=== PATIENT | female | born 1985 | race Caucasian/White ===

== ENCOUNTER 2024-01-25 06:50 | Inpatient (IN) | payer MEDICAID ==
[~2024-01-25] VITALS: Ht 172.7 cm; Wt 74.0 kg
[~2024-01-25 06:50] MED LIST: MIRT-89 PO; RISP3TAB77 PO
[2024-01-25] MEDS: DiphenhydrAMINE HCL 25 MG CAPSULE PO ONE (07:17)
[2024-01-25] MEDS: LORazepam 1 MG TABLET PO ONE (07:17)
[2024-01-25] MEDS: HALOPERIDOL 5 MG TABLET PO ONE (07:17)
[2024-01-25 07:46] LABS: BASOPHILS % (AUTO) 0.6 % (0.0-2.0); HEMATOCRIT 42.4 % (36-46); HEMOGLOBIN 14.1 g/dL (12.0-16.0); LYMPHOCYTES # (AUTO) 2.1 K/uL (1.0-4.8); LYMPHOCYTES % (AUTO) 25.6 % (22.0-44.0); MEAN CORPUSCULAR HEMOGLOBIN 31.1 pg (26.0-34.0); MEAN CORPUSCULAR HGB CONC 33.2 G/dL (31.0-37.0); MEAN CORPUSCULAR VOLUME 94 fL (80-100); MONOCYTES # (AUTO) 0.8 K/uL (0.1-1.0); MONOCYTES % (AUTO) 9.3 % (2.0-9.0); NEUTROPHILS # (AUTO) 5.1 K/uL (1.8-7.7); NEUTROPHILS % (AUTO) 62.5 % (40.0-70.0); PLATELET COUNT (AUTO) 270 K/uL (150-450); RED BLOOD CELL COUNT(AUTO) 4.53 MIL/uL (4.00-5.20); WHITE BLOOD COUNT (AUTO) 8.1 K/uL (4.5-11.0)
[2024-01-25 07:54] LABS: ANION GAP 6 mmol/L (8-16); CALCIUM, TOTAL 9.6 mg/dL (8.8-10.5); CARBON DIOXIDE 32 mmol/L (22-29); CHLORIDE 103 mmol/L (98-107); CREATININE 0.91 mg/dL (0.60-1.30); GLOMERULAR FILTR. RATE CALC > 60 mL/min (>60); GLUCOSE,RANDOM 91 mg/dL (70-110); POTASSIUM 4.8 mmol/L (3.5-5.1); SODIUM SERUM 141 mmol/L (136-145); UREA NITROGEN, BLOOD 22 mg/dL (7-18)
[2024-01-25 08:11] LABS: ALCOHOL, BLOOD (SERUM) < 3 mg/dL (0-10); LITHIUM < 0.20 mmol/L (0.60-1.20)
[2024-01-25 12:25] LABS: COVID AG,FIA SOURCE NASAL SWAB
[2024-01-25 12:48] LABS: SARS-COV2 (COVID) ANTIGEN,FIA Negative (Negative)
[2024-01-25 17:00] VITALS: O2SAT 100
[2024-01-25] MEDS ORDERED: BENZOCAINE/MENTHOL LOZENGE PO PRN (21:00)
[2024-01-25] MEDS ORDERED: BACITRACIN 28 GM OINTMENT TP PRN (21:00)
[2024-01-25] MEDS ORDERED: CloNIDine HCL 0.1 MG TABLET PO PRN (21:00)
[2024-01-25] MEDS ORDERED: DOCUSATE SODIUM 100 MG CAPSULE PO PRN (21:00)
[2024-01-25] MEDS ORDERED: ONDANSETRON 4 MG TABLET PO PRN (21:00)
[2024-01-25] MEDS ORDERED: ALBUTEROL SULFATE HFA 90 MCG/PUFF 8 GM INHALER IH PRN (21:00)
[2024-01-25] MEDS ORDERED: MAGNESIUM HYDROXIDE SUSPENSION 30 ML UDCUP PO PRN (21:00)
[2024-01-25] MEDS ORDERED: LOPERAMIDE HCL 2 MG CAPSULE PO PRN (21:00)
[2024-01-25 22:26] VITALS: BP 92/64; PULSE 84; RESP 18; TEMP 97.9; O2SAT 96
[2024-01-26] MEDS: HALOPERIDOL 5 MG TABLET PO PRN (08:35)
[2024-01-26] MEDS: LORazepam 2 MG TABLET PO PRN (08:35)
[2024-01-26 12:56] VITALS: RESP 16
[2024-01-26] MEDS: LITHIUM CARBONATE 300 MG CAPSULE PO SCH (17:00)
[2024-01-26] MEDS: DIVALPROEX SODIUM 500 MG DR TABLET PO SCH (17:00)
[2024-01-26] MEDS: NICOTINE POLACRILEX 4 MG LOZENGE PO PRN (17:06)
[2024-01-26 20:00] VITALS: BP 140/65; PULSE 76; RESP 18; TEMP 98.6; O2SAT 98
[2024-01-27 08:44] VITALS: BP 100/60; PULSE 77; RESP 19; TEMP 97.6; O2SAT 99
[2024-01-28 03:37] VITALS: RESP 16
[2024-01-28 08:21] VITALS: BP 128/76; PULSE 86; RESP 18; TEMP 97.6; O2SAT 98
[2024-01-28] MEDS: QUEtiapine FUMARATE 300 MG TABLET PO SCH (20:12)
[2024-01-28 20:29] VITALS: BP 111/73; PULSE 78; RESP 19; TEMP 97.6; O2SAT 98
[2024-01-29] MEDS: NICOTINE POLACRILEX 2 MG LOZENGE PO PRN (18:59)
[2024-01-29 22:09] VITALS: BP 120/72; PULSE 91; RESP 18; TEMP 96.9; O2SAT 98
[2024-01-30] MEDS: ZOLPIDEM TARTRATE 10 MG TABLET PO PRN (00:57)
[2024-01-30 08:23] VITALS: BP_SYST 100; PULSE 81; RESP 16; TEMP 97.6; O2SAT 97
[2024-01-30 20:47] VITALS: BP 98/59; PULSE 87; RESP 16; TEMP 97.7; O2SAT 98
[2024-01-31] MEDS: CloZAPine 25 MG TABLET PO SCH (08:16)
[2024-01-31 09:03] VITALS: BP 102/76; PULSE 91; RESP 18; TEMP 97.8; O2SAT 100
[2024-01-31 20:13] VITALS: BP 100/59; PULSE 70; RESP 18; TEMP 97.5; O2SAT 99
[2024-01-31] MEDS: IBUPROFEN 600 MG TABLET PO PRN (21:47)
[2024-02-01] MEDS: CloZAPine 25 MG TABLET PO SCH ×2 (08:11→21:16)
[2024-02-01 09:19] VITALS: RESP 18
[2024-02-02] VITALS: BP 126/82; PULSE 80; RESP 17; TEMP 97.8
[2024-02-02] MEDS: CloZAPine 25 MG TABLET PO SCH ×2 (08:36→20:33)
[2024-02-02 09:05] VITALS: BP 129/67; PULSE 66; RESP 17; TEMP 98.8; O2SAT 97
[2024-02-03 08:02] LABS: BASOPHILS % (AUTO) 0.5 % (0.0-2.0); EOSINOPHILS % (AUTO) 2.9 % (1.0-6.0); HEMATOCRIT 38.6 % (36-46); HEMOGLOBIN 12.9 g/dL (12.0-16.0); LYMPHOCYTES # (AUTO) 2.1 K/uL (1.0-4.8); LYMPHOCYTES % (AUTO) 24.1 % (22.0-44.0); MEAN CORPUSCULAR HEMOGLOBIN 31.4 pg (26.0-34.0); MEAN CORPUSCULAR HGB CONC 33.4 G/dL (31.0-37.0); MEAN CORPUSCULAR VOLUME 94 fL (80-100); MONOCYTES # (AUTO) 0.8 K/uL (0.1-1.0); MONOCYTES % (AUTO) 9.2 % (2.0-9.0); NEUTROPHILS # (AUTO) 5.5 K/uL (1.8-7.7); NEUTROPHILS % (AUTO) 63.3 % (40.0-70.0); PLATELET COUNT (AUTO) 228 K/uL (150-450); RED BLOOD CELL COUNT(AUTO) 4.11 MIL/uL (4.00-5.20); RED CELL DISTRIBUTION WIDTH 13.3 % (11.5-14.5); WHITE BLOOD COUNT (AUTO) 8.7 K/uL (4.5-11.0)
[2024-02-03 08:10] LABS: LITHIUM 0.29 mmol/L (0.60-1.20)
[2024-02-03 08:23] VITALS: BP 112/69; PULSE 74; RESP 16; TEMP 97.6; O2SAT 96
[2024-02-03] MEDS: CloZAPine 25 MG TABLET PO SCH (08:47)
[2024-02-03] MEDS: GABAPENTIN 300 MG CAPSULE PO PRN (16:39)
[2024-02-03 21:26] VITALS: BP 103/70; PULSE 98; RESP 18; TEMP 97.5; O2SAT 98
[2024-02-04 08:20] VITALS: PULSE 100; RESP 18; TEMP 97.9; O2SAT 99
[2024-02-04 20:00] VITALS: BP 107/69; PULSE 103; RESP 17; TEMP 96.5; O2SAT 99
[2024-02-05] MEDS: CloZAPine 25 MG TABLET PO SCH (08:07)
[2024-02-05 08:22] VITALS: RESP 16
[2024-02-05] MEDS: CloZAPine 100 MG TABLET PO SCH (20:22)
[2024-02-05 21:09] VITALS: BP 111/60; PULSE 63; RESP 18; TEMP 97.5; O2SAT 99
[2024-02-05 22:44] VITALS: RESP 18
[2024-02-06] MEDS: CloZAPine 25 MG TABLET PO SCH (08:18)
[2024-02-06 08:33] VITALS: RESP 17
[2024-02-06] MEDS: CloZAPine 100 MG TABLET PO SCH (20:04)
[2024-02-06 20:18] VITALS: BP 107/72; PULSE 102; RESP 17; TEMP 98.7; O2SAT 98
[2024-02-07] MEDS: CloZAPine 25 MG TABLET PO SCH (07:45)
[2024-02-07 08:29] VITALS: RESP 16
[2024-02-07 20:16] VITALS: BP 112/72; PULSE 78; RESP 18; TEMP 97.7; O2SAT 98
[2024-02-07] MEDS: CloZAPine 100 MG TABLET PO SCH (20:19)
[2024-02-07 22:09] VITALS: RESP 18
[2024-02-07 23:06] VITALS: RESP 16
[2024-02-08] MEDS: CloZAPine 100 MG TABLET PO SCH (08:24)
[2024-02-08 08:31] LABS: BASOPHILS % (AUTO) 0.2 % (0.0-2.0); HEMATOCRIT 38.4 % (36-46); HEMOGLOBIN 12.9 g/dL (12.0-16.0); LYMPHOCYTES # (AUTO) 1.7 K/uL (1.0-4.8); LYMPHOCYTES % (AUTO) 16.6 % (22.0-44.0); MEAN CORPUSCULAR HEMOGLOBIN 31.5 pg (26.0-34.0); MEAN CORPUSCULAR HGB CONC 33.5 G/dL (31.0-37.0); MEAN CORPUSCULAR VOLUME 94 fL (80-100); MONOCYTES # (AUTO) 1.1 K/uL (0.1-1.0); MONOCYTES % (AUTO) 10.9 % (2.0-9.0); NEUTROPHILS # (AUTO) 7.3 K/uL (1.8-7.7); NEUTROPHILS % (AUTO) 69.3 % (40.0-70.0); PLATELET COUNT (AUTO) 193 K/uL (150-450); RED BLOOD CELL COUNT(AUTO) 4.09 MIL/uL (4.00-5.20); RED CELL DISTRIBUTION WIDTH 13.8 % (11.5-14.5); WHITE BLOOD COUNT (AUTO) 10.5 K/uL (4.5-11.0)
[2024-02-08 08:38] VITALS: RESP 17
[2024-02-08] MEDS: LITHIUM CARBONATE 300 MG CAPSULE PO SCH (14:06)
[2024-02-08 20:00] VITALS: BP 100/69; PULSE 95; RESP 16; TEMP 97.5; O2SAT 100
[2024-02-08] MEDS: QUEtiapine FUMARATE 100 MG TABLET PO SCH (20:43)
[2024-02-08] MEDS: ESZOPICLONE 3 MG TABLET PO SCH (20:44)
[2024-02-08] MEDS: DIVALPROEX SODIUM 500 MG DR TABLET PO SCH (20:44)
[2024-02-09 08:24] VITALS: RESP 16
[2024-02-09 23:49] VITALS: BP 122/71; PULSE 88; RESP 16; TEMP 97.1; O2SAT 100
[2024-02-10] MEDS: CloZAPine 25 MG TABLET PO SCH (08:51)
[2024-02-10 09:49] VITALS: BP 101/64; PULSE 102; RESP 16; TEMP 98.2; O2SAT 98
[2024-02-10 11:42] VITALS: RESP 18
[2024-02-10] MEDS: CloZAPine 100 MG TABLET PO SCH (20:17)
[2024-02-11] MEDS: CloZAPine 25 MG TABLET PO SCH (08:41)
[2024-02-11] MEDS: CloZAPine 100 MG TABLET PO SCH (20:27)
[2024-02-11 21:36] VITALS: RESP 19
[2024-02-11 22:36] VITALS: RESP 17
[2024-02-12] MEDS: CloZAPine 100 MG TABLET PO SCH ×2 (08:41→20:09)
[2024-02-12 08:51] VITALS: BP 101/63; PULSE 98; RESP 17; TEMP 97.5; O2SAT 98
[2024-02-12 17:07] VITALS: RESP 18
[2024-02-12 18:07] VITALS: RESP 17
[2024-02-12 20:21] VITALS: BP 103/63; PULSE 95; RESP 18; TEMP 97; O2SAT 98
[2024-02-12 23:30] VITALS: RESP 18
[2024-02-13 09:12] VITALS: BP 107/74; PULSE 109; RESP 16; TEMP 97.6; O2SAT 99
[2024-02-14 00:11] VITALS: BP 131/80; PULSE 111; RESP 20; TEMP 98; O2SAT 100
[2024-02-14 09:43] VITALS: RESP 17
[2024-02-14 23:27] VITALS: BP 129/81; PULSE 118; RESP 18; TEMP 97.5; O2SAT 100
[2024-02-14 23:40] VITALS: RESP 18
[2024-02-15 08:35] VITALS: RESP 17
[2024-02-15 20:00] VITALS: RESP 16
[2024-02-16 16:01] VITALS: BP 126/77; PULSE 97; RESP 16; TEMP 97.6
[2024-02-16 16:41] VITALS: BP 118/72; PULSE 89; RESP 17; TEMP 98; O2SAT 98
[2024-02-16 20:43] VITALS: BP 121/88; PULSE 102; RESP 18; TEMP 97; O2SAT 97
[2024-02-17 08:10] LABS: BASOPHILS % (AUTO) 0.3 % (0.0-2.0); EOSINOPHILS % (AUTO) 3.1 % (1.0-6.0); HEMOGLOBIN 10.9 g/dL (12.0-16.0); LYMPHOCYTES # (AUTO) 1.1 K/uL (1.0-4.8); LYMPHOCYTES % (AUTO) 9.7 % (22.0-44.0); MEAN CORPUSCULAR HEMOGLOBIN 30.7 pg (26.0-34.0); MEAN CORPUSCULAR HGB CONC 32.9 G/dL (31.0-37.0); MEAN CORPUSCULAR VOLUME 93 fL (80-100); MONOCYTES # (AUTO) 1.8 K/uL (0.1-1.0); MONOCYTES % (AUTO) 16.4 % (2.0-9.0); NEUTROPHILS # (AUTO) 7.8 K/uL (1.8-7.7); NEUTROPHILS % (AUTO) 70.5 % (40.0-70.0); PLATELET COUNT (AUTO) 264 K/uL (150-450); RED BLOOD CELL COUNT(AUTO) 3.54 MIL/uL (4.00-5.20); RED CELL DISTRIBUTION WIDTH 13.5 % (11.5-14.5); WHITE BLOOD COUNT (AUTO) 11.1 K/uL (4.5-11.0)
[2024-02-17 08:27] VITALS: RESP 16
[2024-02-17] MEDS: CloZAPine 100 MG TABLET PO SCH (08:36)
[2024-02-17 12:24] VITALS: BP 107/72; PULSE 127; RESP 18; TEMP 100.4; O2SAT 97
[2024-02-17 12:28] VITALS: RESP 17
[2024-02-17 13:28] VITALS: RESP 17
[2024-02-17 15:26] LABS: GLUCOMETER DEV NAME(LOC) POC.BV; POC SARS-COV2 AG, FIA NEGATIVE (NEGATIVE)
[2024-02-17 16:30] VITALS: BP 101/69; PULSE 115; RESP 16; TEMP 98.2; O2SAT 97
[2024-02-17 20:00] VITALS: BP 101/69; PULSE 115; RESP 17; TEMP 98.2; O2SAT 97
[2024-02-18 02:26] VITALS: BP 112/74; PULSE 117; RESP 18; TEMP 98.2; O2SAT 98
[2024-02-18 08:00] VITALS: BP 111/66; PULSE 100; RESP 16; TEMP 98.2; O2SAT 100
[2024-02-18 08:24] LABS: APPEARANCE,URINE CLEAR (CLEAR); BILIRUBIN,URINE NEGATIVE (NEGATIVE); COLOR,URINE LIGHT YELLOW (YELLOW); GLUCOSE, URINE (UA) NEGATIVE (NEGATIVE); KETONES,URINE NEGATIVE (NEGATIVE); LEUKOCYTE ESTERASE ,URINE NEGATIVE (NEGATIVE); NITRATE,URINE NEGATIVE (NEGATIVE); OCCULT BLOOD,URINE NEGATIVE (NEGATIVE); PH,URINE 6.5 (5.0-8.0); PROTEIN,URINE NEGATIVE (NEGATIVE); SPECIFIC GRAVITIY, URINE 1.016 (1.003-1.030); UROBILINOGEN,URINE <=1.0 mg/dL (<=1.0)
[2024-02-18 08:40] LABS: BACTERIA,URINE None Seen /HPF (None Seen); RBC,URINE None Seen /HPF (0-2); SQUAMOUS EPITHELIAL CELL,UR Few /LPF (None Seen); WBC,URINE None Seen /HPF (0-5)
[2024-02-18] MEDS: RisperiDONE MICROSPHERES 50 MG/2 ML SYRINGE IM SCH (09:03)
[2024-02-18 21:14] VITALS: BP 114/76; PULSE 100; RESP 18; TEMP 98; O2SAT 97
[2024-02-19 10:23] VITALS: RESP 18
[2024-02-19] MEDS: PETROLATUM,WHITE 28 GM JELLY TP PRN (16:31)
[2024-02-19 21:59] VITALS: BP 101/63; PULSE 79; RESP 20; TEMP 97.3; O2SAT 96
[2024-02-20 09:40] VITALS: BP 103/59; PULSE 82; RESP 18; TEMP 98; O2SAT 97
[2024-02-20 09:50] VITALS: BP 106/63; PULSE 76
[2024-02-20 20:42] VITALS: BP 106/68; PULSE 76; RESP 18; TEMP 98; O2SAT 96
[2024-02-21 19:15] VITALS: BP 110/68; PULSE 72; RESP 17; TEMP 98; O2SAT 96
[2024-02-21 20:34] VITALS: BP 102/65; PULSE 18; RESP 18; TEMP 97.2; O2SAT 98
[2024-02-22 16:41] VITALS: BP 111/72; PULSE 77; RESP 18; TEMP 97.7
[2024-02-23] VITALS (7 sets, daily range): BP systolic 101–115; BP diastolic 60–82; PULSE 65–86; RESP 16–18; TEMP 97.1–97.9; O2SAT 98
[2024-02-23] MEDS: ACETAMINOPHEN 325 MG TABLET PO PRN (15:35)
[2024-02-24] VITALS (9 sets, daily range): BP systolic 98–112; BP diastolic 61–69; PULSE 74–85; RESP 16–18; TEMP 97.7–98; O2SAT 96–97
[2024-02-24 08:50] LABS: BASOPHILS % (AUTO) 1.2 % (0.0-2.0); EOSINOPHILS % (AUTO) 3.1 % (1.0-6.0); HEMATOCRIT 35.1 % (36-46); HEMOGLOBIN 11.7 g/dL (12.0-16.0); LYMPHOCYTES # (AUTO) 2.2 K/uL (1.0-4.8); LYMPHOCYTES % (AUTO) 19.8 % (22.0-44.0); MEAN CORPUSCULAR HGB CONC 33.3 G/dL (31.0-37.0); MEAN CORPUSCULAR VOLUME 93 fL (80-100); MONOCYTES % (AUTO) 9.2 % (2.0-9.0); NEUTROPHILS # (AUTO) 7.3 K/uL (1.8-7.7); NEUTROPHILS % (AUTO) 66.7 % (40.0-70.0); PLATELET COUNT (AUTO) 406 K/uL (150-450); RED BLOOD CELL COUNT(AUTO) 3.77 MIL/uL (4.00-5.20); RED CELL DISTRIBUTION WIDTH 13.4 % (11.5-14.5)
[2024-02-25] VITALS (9 sets, daily range): RESP 16–18; TEMP 97.3
[2024-02-26] VITALS (9 sets, daily range): BP systolic 92–111; BP diastolic 58–74; PULSE 74–96; RESP 16–18; TEMP 97.5–97.8; O2SAT 96–97
[2024-02-26] MEDS: NICOTINE 14 MG/24 HOUR PATCH TD PRN (12:49)
[2024-02-26] MEDS: LORazepam 1 MG TABLET PO PRN (13:28)
[2024-02-27 08:28] VITALS: RESP 16
[2024-02-27] MEDS: TUBERCULIN, PURIFIED PROTEIN DERIVATIVE 5 TU/0.1 ML SYRINGE ID ONE (09:20)
[2024-02-27] MEDS: MAG HYDROX/ALUMINUM HYD/SIMETH ES 30 ML SUSPENSION UDCUP PO PRN (13:48)
[2024-02-27 16:40] VITALS: BP 111/78; PULSE 89; RESP 17; TEMP 97.6
[2024-02-27 19:59] VITALS: RESP 18
[2024-02-27 21:18] VITALS: BP 110/76; PULSE 90; RESP 17; TEMP 97.5; O2SAT 97
[2024-02-28 09:26] VITALS: BP 101/60; PULSE 69; RESP 18; TEMP 97.8; O2SAT 96
[2024-02-28 19:56] VITALS: RESP 19
[2024-02-28 20:00] VITALS: BP 116/70; PULSE 100; RESP 16; TEMP 98.2; O2SAT 97
[2024-02-28 20:56] VITALS: RESP 16
[2024-02-29 08:57] VITALS: RESP 17
[2024-02-29 13:20] VITALS: BP 100/63; RESP 17; O2SAT 97
[2024-02-29 14:22] VITALS: RESP 18
[2024-02-29 16:24] VITALS: BP 108/77; PULSE 110; RESP 16; TEMP 98.2; O2SAT 97
[2024-02-29 17:24] VITALS: RESP 17; O2SAT 97
[2024-02-29 20:24] VITALS: BP 109/69; PULSE 101; RESP 16; TEMP 97.6; O2SAT 97
[2024-03-01] VITALS (7 sets, daily range): BP systolic 106–107; BP diastolic 64–67; PULSE 100–101; RESP 16–18; TEMP 97.6–98.4; O2SAT 98
[2024-03-02 00:45] VITALS: RESP 18
[2024-03-02 05:48] VITALS: RESP 18
[2024-03-02 08:23] VITALS: RESP 16
[2024-03-02 20:00] VITALS: BP 105/68; PULSE 99; RESP 16; TEMP 98.6; O2SAT 97
[2024-03-02 22:54] VITALS: BP 107/65; PULSE 89; RESP 18; TEMP 98.2; O2SAT 98
[2024-03-03 08:14] VITALS: BP 100/60; PULSE 65; RESP 19; TEMP 97.7; O2SAT 98
[2024-03-03 20:00] VITALS: BP 97/67; PULSE 106; RESP 17; TEMP 98; O2SAT 96
[2024-03-04 08:21] VITALS: RESP 16
[2024-03-04 16:21] VITALS: RESP 18
[2024-03-04 23:28] VITALS: BP 109/66; PULSE 72; RESP 18; TEMP 97.2; O2SAT 99
[2024-03-05 09:35] VITALS: BP 108/60; PULSE 85; RESP 17; TEMP 97.8; O2SAT 97
[2024-03-05 13:56] VITALS: RESP 17
[2024-03-05 14:56] VITALS: RESP 17
[2024-03-05 20:00] VITALS: BP 101/66; PULSE 78; RESP 16; TEMP 98; O2SAT 98
[2024-03-06 08:15] VITALS: RESP 16
[2024-03-06 20:14] VITALS: BP 107/66; PULSE 83; RESP 18; TEMP 97.7
[2024-03-06 22:04] VITALS: BP 104/64; PULSE 88; RESP 16; TEMP 97.8
[2024-03-07 08:28] VITALS: RESP 16
[2024-03-07 20:00] VITALS: BP 106/68; PULSE 82; RESP 16; TEMP 98; O2SAT 97
[2024-03-08 08:25] VITALS: RESP 16
[2024-03-08 22:36] VITALS: BP 103/68; PULSE 75; RESP 18; TEMP 98; O2SAT 97
[2024-03-09 21:29] VITALS: BP 107/63; PULSE 84; RESP 16; TEMP 98.7; O2SAT 96
[2024-03-10 09:12] VITALS: BP 100/62; PULSE 100; RESP 16; TEMP 97.6; O2SAT 98
[2024-03-10 10:55] VITALS: RESP 16
[2024-03-10 11:55] VITALS: RESP 16
[2024-03-10 20:36] VITALS: BP 101/68; PULSE 78; RESP 18; TEMP 97.3; O2SAT 98
[2024-03-10 22:03] VITALS: RESP 18
[2024-03-10 22:56] VITALS: RESP 17
[2024-03-11 08:02] VITALS: BP 100/63; PULSE 84; RESP 18; TEMP 98.2; O2SAT 96
[2024-03-11 11:26] VITALS: BP 104/68; PULSE 86; RESP 16; TEMP 98; O2SAT 98
[2024-03-11 14:16] VITALS: RESP 16
[2024-03-11 17:52] VITALS: RESP 18
[2024-03-11 18:52] VITALS: RESP 17
[2024-03-11 20:30] VITALS: BP 98/58; PULSE 90; RESP 16; TEMP 98.2; O2SAT 96
[2024-03-12 08:27] VITALS: BP 114/72; PULSE 78; RESP 16; TEMP 97.9; O2SAT 99
[2024-03-12 20:19] VITALS: BP 96/60; PULSE 83; RESP 16; TEMP 98; O2SAT 97
[2024-03-13] MEDS: ZOLPIDEM TARTRATE 10 MG TABLET PO PRN (02:07)
[2024-03-13 08:31] VITALS: BP 116/69; PULSE 94; RESP 16; TEMP 97.9; O2SAT 97
[2024-03-13 21:51] VITALS: BP 103/70; PULSE 63; RESP 18; TEMP 97.7; O2SAT 97
[2024-03-14 08:18] VITALS: BP 109/64; PULSE 82; RESP 16; TEMP 97.8; O2SAT 97
[2024-03-14 20:00] VITALS: BP 125/60; PULSE 67; RESP 16; TEMP 98; O2SAT 99
[2024-03-15 09:49] VITALS: BP 105/69; PULSE 90; RESP 16; TEMP 98.7; O2SAT 99
[2024-03-15 20:13] VITALS: BP 113/72; PULSE 95; RESP 18; TEMP 98; O2SAT 97
[2024-03-16 08:36] VITALS: BP 101/69; PULSE 90; RESP 18; TEMP 97.9; O2SAT 100
[2024-03-16 20:09] VITALS: BP 105/70; PULSE 92; RESP 17; TEMP 98; O2SAT 98
[2024-03-17 08:16] VITALS: BP 125/69; PULSE 99; RESP 16; TEMP 98.2; O2SAT 96
[2024-03-17 20:00] VITALS: BP 104/73; PULSE 84; RESP 16; TEMP 98.4; O2SAT 96
[2024-03-18 08:22] VITALS: BP 112/76; PULSE 103; RESP 16; TEMP 98.2; O2SAT 97
[2024-03-18 12:30] VITALS: PULSE 72
[2024-03-18 20:13] VITALS: BP 108/59; PULSE 90; RESP 20; TEMP 98.2; O2SAT 99
[2024-03-19 08:36] VITALS: BP 102/63; PULSE 90; RESP 17; TEMP 97.5; O2SAT 98
[2024-03-19 20:00] VITALS: BP 122/74; PULSE 95; RESP 16; TEMP 98.4; O2SAT 97
[2024-03-20 08:39] VITALS: BP 106/72; PULSE 79; RESP 16; TEMP 97.6; O2SAT 98
[2024-03-20 20:17] VITALS: BP 95/60; PULSE 77; RESP 16; TEMP 98.2; O2SAT 99
[2024-03-21 08:16] VITALS: BP 118/70; PULSE 99; RESP 16; TEMP 97.8; O2SAT 96
[2024-03-21 20:00] VITALS: BP 115/72; PULSE 96; RESP 16; TEMP 98.2; O2SAT 97
[2024-03-22 09:06] VITALS: BP 108/71; PULSE 95; RESP 16; TEMP 97.5; O2SAT 96
[2024-03-22 11:07] VITALS: RESP 16
[2024-03-22 12:07] VITALS: RESP 16
[2024-03-22 20:00] VITALS: BP 106/67; PULSE 93; RESP 16; TEMP 98.2; O2SAT 96
[2024-03-23 08:22] VITALS: BP 100/60; PULSE 80; RESP 19; TEMP 97.7; O2SAT 99
[2024-03-23 20:44] VITALS: BP 110/71; PULSE 103; RESP 18; TEMP 97.7; O2SAT 98
[2024-03-24 08:30] VITALS: BP 100/60; PULSE 60; RESP 17; TEMP 97.7; O2SAT 97
[2024-03-24 20:18] VITALS: BP 120/70; PULSE 97; RESP 16; TEMP 98.4; O2SAT 98
[2024-03-25 08:46] VITALS: BP 118/83; PULSE 79; RESP 16; TEMP 97.6; O2SAT 96
[2024-03-25 20:00] VITALS: RESP 16
[2024-03-25] MEDS: QUEtiapine FUMARATE 25 MG TABLET PO PRN (21:05)
[2024-03-26 08:28] VITALS: BP 119/68; PULSE 76; RESP 16; TEMP 97.9; O2SAT 97
[2024-03-26 21:07] VITALS: BP 104/71; PULSE 90; RESP 16; TEMP 97; O2SAT 96
[2024-03-27 08:31] VITALS: BP 102/62; PULSE 80; RESP 17; TEMP 97.3; O2SAT 96
[2024-03-27 20:33] VITALS: BP 103/70; PULSE 93; RESP 18; TEMP 98.6; O2SAT 95
[2024-03-28 00:05] VITALS: BP 101/64; PULSE 80; RESP 16; TEMP 97.8; O2SAT 98
[2024-03-28 08:33] VITALS: RESP 18
[2024-03-28 21:40] VITALS: RESP 16
[2024-03-29 09:50] VITALS: BP 114/74; PULSE 98; RESP 17; TEMP 97.7; O2SAT 98
[2024-03-29] MEDS: OMEPRAZOLE 20 MG CAPSULE PO PRN (13:09)
[2024-03-29] MEDS ORDERED: GuaiFENesin/D-METHORPHAN/PHENYLEPH 5 ML LIQUID ORAL.SYG PO PRN (16:30)
[2024-03-29] MEDS: GuaiFENesin/D-METHORPHAN/PHENYLEPH 5 ML LIQUID ORAL.SYG PO PRN (16:44)
[2024-03-29 20:35] VITALS: BP 106/70; PULSE 102; RESP 18; TEMP 97.3; O2SAT 98
[2024-03-30 08:22] VITALS: BP 110/76; PULSE 84; RESP 16; TEMP 97.9; O2SAT 98
[2024-03-30] MEDS ORDERED: GuaiFENesin/D-METHORPHAN/PHENYLEPH 5 ML LIQUID ORAL.SYG PO PRN (13:15)
[2024-03-30 17:35] LABS: GLUCOMETER DEV NAME(LOC) POC.BV; POC SARS-COV2 AG, FIA POSITIVE (NEGATIVE)
[2024-03-30 19:11] VITALS: BP 102/66; PULSE 96; RESP 18; TEMP 99.1; O2SAT 97
[2024-03-30 20:50] VITALS: RESP 16
[2024-03-30] MEDS: GuaiFENesin/D-METHORPHAN/PHENYLEPH 5 ML LIQUID ORAL.SYG PO PRN (22:41)
[2024-03-31 08:44] VITALS: BP 118/80; PULSE 79; RESP 16; TEMP 97.6; O2SAT 97
[2024-03-31 20:00] VITALS: BP 99/63; PULSE 100; RESP 16; TEMP 98.7; O2SAT 100
[2024-04-01 08:32] VITALS: BP 110/67; PULSE 100; RESP 18; TEMP 98.7; O2SAT 97
[2024-04-01 21:05] VITALS: BP 123/85; PULSE 89; RESP 18; TEMP 97.8; O2SAT 97
[2024-04-02 08:39] VITALS: BP 100/62; PULSE 84; RESP 17; TEMP 97.6; O2SAT 94
[2024-04-02 20:46] VITALS: BP 104/70; PULSE 90; RESP 18; TEMP 98.7; O2SAT 97
[2024-04-02 21:00] VITALS: BP 106/68; PULSE 88; RESP 18; TEMP 98.7; O2SAT 98
[2024-04-02 21:54] VITALS: RESP 18; TEMP 98.5; O2SAT 98
[2024-04-03 12:35] VITALS: BP 102/70; PULSE 89; RESP 17; TEMP 98.6; O2SAT 96
[2024-04-03 20:52] VITALS: BP 109/70; PULSE 79; RESP 18; TEMP 97.8; O2SAT 98
[2024-04-04 08:10] VITALS: RESP 16
[2024-04-04 11:25] LABS: GLUCOMETER DEV NAME(LOC) POC.BV; POC SARS-COV2 AG, FIA NEGATIVE (NEGATIVE)
[2024-04-04 20:54] VITALS: BP 117/73; PULSE 95; RESP 17; TEMP 97.9; O2SAT 99
[2024-04-05 08:24] VITALS: BP 97/64; PULSE 68; RESP 16; TEMP 97.6; O2SAT 95
[2024-04-05 20:50] VITALS: BP 107/68; PULSE 91; RESP 16; TEMP 98.2; O2SAT 97
[2024-04-06 10:31] VITALS: BP 99/66; PULSE 90; RESP 16; TEMP 98; O2SAT 97
[2024-04-06 21:10] VITALS: BP 105/62; PULSE 94; RESP 18; TEMP 98.2; O2SAT 95
[2024-04-07 10:45] VITALS: BP 96/50; PULSE 72; RESP 18; TEMP 98.2; O2SAT 95
[2024-04-07 17:00] LABS: GLUCOMETER DEV NAME(LOC) POC.BV; POC SARS-COV2 AG, FIA NEGATIVE (NEGATIVE)
[2024-04-07 20:30] VITALS: BP 102/68; PULSE 80; RESP 18; TEMP 97.1; O2SAT 96
[2024-04-07 23:41] VITALS: BP 119/81; PULSE 82; RESP 16; TEMP 97.5; O2SAT 95
[2024-04-08 08:18] VITALS: RESP 16
[2024-04-08 20:37] VITALS: BP 98/62; PULSE 72; RESP 16; TEMP 98.2; O2SAT 98
[2024-04-09 08:06] VITALS: BP 99/63; PULSE 76; RESP 16; TEMP 98; O2SAT 96
[2024-04-09 20:17] VITALS: BP 106/66; PULSE 83; RESP 16; TEMP 97; O2SAT 99
[2024-04-10 08:30] VITALS: BP 109/60; PULSE 78; RESP 18; TEMP 98; O2SAT 97
[2024-04-10 20:45] VITALS: BP 103/65; PULSE 65; RESP 18; TEMP 98; O2SAT 100
[2024-04-11 06:21] LABS: GLUCOMETER DEV NAME(LOC) POC.BV; POC SARS-COV2 AG, FIA NEGATIVE (NEGATIVE)
[2024-04-11 08:18] VITALS: BP 102/67; PULSE 100; RESP 16; TEMP 97.7; O2SAT 95
== END 2024-04-11 12:23 | DRG 750 ==
LOC: EMS 06:52 → EDBD 18:08 → B3A 18:08
PROVIDERS: ADMIT Psychiatry & Neurology Psychiatry; ATTEND Psychiatry & Neurology Psychiatry
PROC: GZ56ZZZ Individual Psychotherapy, Supportive (ICD-10-PCS; principal; 2024-01-29)
DX: F25.0 Schizoaffective disorder, bipolar type (principal); U07.1 COVID-19; F41.9 Anxiety disorder, unspecified; G47.00 Insomnia, unspecified; K59.00 Constipation, unspecified; Z72.0 Tobacco use; Z91.199 Patient's noncompliance with other medical treatment and regimen due to unspecified reason
CPT/HCPCS: 80048; 80164; 80178; 81001; 84703; 85025; 87081; 99285; G0480; J2794